=== PATIENT | male | born 1965 | race Caucasian/White ===

== ENCOUNTER 2021-03-26 17:59 | Inpatient (IN) | payer BC ==
[~2021-03-26] VITALS: Ht 175.3 cm; Wt 86.2 kg
[2021-03-26 22:44] LABS: HEMOGLOBIN 14.4 gm/dl (14.0-17.5); RED BLOOD COUNT 4.62 M/UL (4.20-5.50); WHITE BLOOD COUNT 7.9 K/UL (4.5-11.0)
[2021-03-26 23:07] LABS: BUN/CREATININE RATIO 38 (0-10)
[2021-03-27 05:27] LABS: HEMOGLOBIN 14.3 gm/dl (14.0-17.5); RED BLOOD COUNT 4.62 M/UL (4.20-5.50); WHITE BLOOD COUNT 7.3 K/UL (4.5-11.0)
[2021-03-27 05:49] LABS: BUN/CREATININE RATIO 36 (0-10)
[2021-03-28 08:03] LABS: HEMOGLOBIN 14.4 gm/dl (14.0-17.5); RED BLOOD COUNT 4.83 M/UL (4.20-5.50); WHITE BLOOD COUNT 8.4 K/UL (4.5-11.0)
[2021-03-28 08:31] LABS: BUN/CREATININE RATIO 29 (0-10)
[2021-03-29 05:51] LABS: HEMOGLOBIN 14.3 gm/dl (14.0-17.5); RED BLOOD COUNT 4.63 M/UL (4.20-5.50); WHITE BLOOD COUNT 9.3 K/UL (4.5-11.0)
[2021-03-29 06:21] LABS: BUN/CREATININE RATIO 26 (0-10)
[2021-03-30 05:34] LABS: HEMOGLOBIN 14.7 gm/dl (14.0-17.5); RED BLOOD COUNT 4.82 M/UL (4.20-5.50); WHITE BLOOD COUNT 11.6 K/UL (4.5-11.0)
[2021-03-30 05:56] LABS: BUN/CREATININE RATIO 27 (0-10)
[2021-03-31 04:53] LABS: HEMOGLOBIN 14.5 gm/dl (14.0-17.5); RED BLOOD COUNT 4.72 M/UL (4.20-5.50); WHITE BLOOD COUNT 14.2 K/UL (4.5-11.0)
[2021-03-31 05:36] LABS: BUN/CREATININE RATIO 31 (0-10)
[2021-04-01 04:28] LABS: HEMOGLOBIN 14.1 gm/dl (14.0-17.5); RED BLOOD COUNT 4.6 M/UL (4.20-5.50); WHITE BLOOD COUNT 15.6 K/UL (4.5-11.0)
[2021-04-01 04:48] LABS: BUN/CREATININE RATIO 27 (0-10)
[2021-04-02 08:19] LABS: HEMOGLOBIN 14.2 gm/dl (14.0-17.5); RED BLOOD COUNT 4.61 M/UL (4.20-5.50); WHITE BLOOD COUNT 17.8 K/UL (4.5-11.0)
[2021-04-02 08:35] LABS: BUN/CREATININE RATIO 29 (0-10)
[2021-04-03 08:21] LABS: HEMOGLOBIN 14.7 gm/dl (14.0-17.5); RED BLOOD COUNT 4.72 M/UL (4.20-5.50); WHITE BLOOD COUNT 18.6 K/UL (4.5-11.0)
[2021-04-03 08:42] LABS: BUN/CREATININE RATIO 35 (0-10)
[2021-04-05 04:26] LABS: HEMOGLOBIN 15.2 gm/dl (14.0-17.5); RED BLOOD COUNT 4.81 M/UL (4.20-5.50)
[2021-04-05 04:40] LABS: WHITE BLOOD COUNT 12.7 K/UL (4.5-11.0)
[2021-04-05 04:52] LABS: BUN/CREATININE RATIO 43 (0-10)
[2021-04-07 08:42] LABS: HEMOGLOBIN 14.6 gm/dl (14.0-17.5); RED BLOOD COUNT 4.68 M/UL (4.20-5.50); WHITE BLOOD COUNT 10.3 K/UL (4.5-11.0)
[2021-04-07 09:14] LABS: BUN/CREATININE RATIO 32 (0-10)
[2021-04-11 08:59] LABS: BUN/CREATININE RATIO 22 (0-10)
[2021-04-11] MEDS ORDERED: PROVENTIL HFA6.7 GM INH (11:44)
[2021-04-11] MEDS ORDERED: MEDROL4 MG PO (11:44)
[2021-04-11] MEDS ORDERED: IPRAT-ALBUT 0.5-3 ML INH (11:44)
[2021-04-11] MEDS ORDERED: NEBULIZER UNIT NEB (11:44)
[2021-04-14 03:05] LABS: HEMOGLOBIN 13.8 gm/dl (14.0-17.5); RED BLOOD COUNT 4.4 M/UL (4.20-5.50); WHITE BLOOD COUNT 10.7 K/UL (4.5-11.0)
[2021-04-14 03:38] LABS: BUN/CREATININE RATIO 26 (0-10)
[2021-04-15 04:02] LABS: HEMOGLOBIN 14.3 gm/dl (14.0-17.5); RED BLOOD COUNT 4.6 M/UL (4.20-5.50)
[2021-04-15 04:08] LABS: WHITE BLOOD COUNT 6.6 K/UL (4.5-11.0)
[2021-04-15 04:31] LABS: BUN/CREATININE RATIO 21 (0-10)
[2021-04-15] MEDS ORDERED: DECADRON IM/I4 MG/ML PO (08:11)
[2021-04-15] MEDS ORDERED: LEVOFLOXACIN500 MG PO (08:11)
[2021-04-15] MEDS ORDERED: PROTONIX40 MG PO (08:23)
--- NOTE | 2021-04-15 09:37 | NUR ---
PT ROOM AIR OXYGEN SATURATION 79%
[2021-04-15] MEDS ORDERED: MYCOSTATIN100000 UTS PO (12:30)
[2021-04-15] MEDS ORDERED: DIFLUCAN100 MG PO (12:31)
[2021-04-15] MEDS ORDERED: DECADRON6 MG PO (13:08)
== END 2021-04-15 13:47 | disposition home or self-care (01) | DRG 177 ==
LOC: PROG CARE 20:39 → CCU 20:39 → PROG CARE 03-31 12:05
PROVIDERS: Internal Medicine; Internal Medicine Critical Care Medicine; Internal Medicine Infectious Disease; ADMIT Internal Medicine
PROC: 8E0ZXY6 Isolation (ICD-10-PCS; principal; 2021-03-26)
PROC: 3E0333Z Introduction of Anti-inflammatory into Peripheral Vein, Percutaneous Approach (ICD-10-PCS; 2021-03-26)
PROC: XW033H5 Introduction of Tocilizumab into Peripheral Vein, Percutaneous Approach, New Technology Group 5 (ICD-10-PCS; 2021-04-04)
PROC: B24BZZZ Ultrasonography of Heart with Aorta (ICD-10-PCS; 2021-04-04)
PROC: 5A09357 Assistance with Respiratory Ventilation, Less than 24 Consecutive Hours, Continuous Positive Airway Pressure (ICD-10-PCS; 2021-04-04)
PROC: 5A0945A Assistance with Respiratory Ventilation, 24-96 Consecutive Hours, High Flow/Velocity Cannula (ICD-10-PCS; 2021-04-10)
DX: U07.1 COVID-19 (principal); J12.82 Pneumonia due to coronavirus disease 2019; J15.9 Unspecified bacterial pneumonia; J80 Acute respiratory distress syndrome; B37.0 Candidal stomatitis; D84.9 Immunodeficiency, unspecified; R74.01 Elevation of levels of liver transaminase levels; J47.9 Bronchiectasis, uncomplicated; E86.0 Dehydration; K21.9 Gastro-esophageal reflux disease without esophagitis; I10 Essential (primary) hypertension; G47.00 Insomnia, unspecified; R13.12 Dysphagia, oropharyngeal phase; R74.8 Abnormal levels of other serum enzymes; Z82.49 Family history of ischemic heart disease and other diseases of the circulatory system; Z82.5 Family history of asthma and other chronic lower respiratory diseases; Z23 Encounter for immunization; Z79.899 Other long term (current) drug therapy; Z91.81 History of falling; R73.03 Prediabetes
CPT/HCPCS: ECHO; 36415; 36600; 71045; 80048; 80053; 81001; 82550; 82553; 82728; 82803; 82962; 83036; 83605; 83615; 83735; 83874; 83880; 84100; 84484; 85025; 85027; 85379; 85652; 86140; 87040; 87045; 87046; 87070; 87077; 87086; 87186; 87205; 87449; 92610; 93005; 93306; 93970; 94640; 94660; 94664; 94760; 97110; 97116; 97116-GP-CQ; 97162; 97530; 97530-GP-CQ; J0456; J0696; J1100; J1650; J1940; J2185; J7030; Q0249